=== PATIENT | male | born 1990 | race Caucasian/White ===

== ENCOUNTER 2017-06-14 02:13 | Emergency (ER) | payer OTHER ==
[2017-06-14] MEDS: DIPHTH/TET/ACEL PERTUSS (ADULT) 0.5 ML VIAL IM* (04:56)
== END 2017-06-14 06:12 | disposition home or self-care (01) ==
LOC: FTE 02:13
DX: T22.112A Burn of first degree of left forearm, initial encounter (principal); X15.3XXA Contact with hot saucepan or skillet, initial encounter; Y92.9 Unspecified place or not applicable; Z23 Encounter for immunization
CPT/HCPCS: 90471; 90715; 99283-25